=== PATIENT | female | born 1985 | race African-American/Black ===

== ENCOUNTER 2021-10-29 09:05 | Emergency (ER) | payer OTHER ==
[~2021-10-29] VITALS: Ht 167.6 cm; Wt 79.0 kg
[~2021-10-29 09:05] MED LIST: ALBU2.5V13; DILANTIN
[2021-10-29 09:07] VITALS: BP 144/86
== END 2021-10-29 10:19 | disposition left against medical advice (07) ==
LOC: ER 09:05
DX: Z53.21 Procedure and treatment not carried out due to patient leaving prior to being seen by health care provider (principal)